=== PATIENT | male | born 1995 | race Caucasian/White ===

== ENCOUNTER 2016-11-10 16:40 | Emergency (ER) | payer OTHER ==
[~2016-11-10] VITALS: Ht 177.8 cm; Wt 85.0 kg
[~2016-11-10 16:40] MED LIST: MULT-589 PO; PRT40 PO
[2016-11-10 16:49] VITALS: TEMP 37; Ht 177.8 cm; Wt 85.0 kg
[2016-11-10] MEDS ORDERED: NORCO 5/325MG HOME PACK PO STA (17:38)
[2016-11-10] MEDS ORDERED: HYDROCODONE/ACETAMOPHEN 5/325MG TAB PO STA (17:38)
--- NOTE | 2016-11-10 17:56 | DIAGNOSTIC IMAGING REPORT ---
RIGHT SHOULDER 2 VIEWS HISTORY: Right shoulder pain, hx dislocations Right COMPARISON: Right shoulder 04/22/2014. FINDINGS: There is an old Hill-Sachs deformity within the humeral head. This remains unchanged. No acute fracture or dislocation. The right clavicle appears intact. Soft tissues are unremarkable. No radiopaque foreign bodies. IMPRESSION: [place]-Sachs deformity, unchanged. No acute fracture or dislocation within the right shoulder. Electronically signed by: Anuj Rodriguez M.D. 11/10/2016 5:54 PM Dictated Date/Time: 11/10/2016 5:53 PM
[2016-11-10] MEDS ORDERED: HYDR-5688 PO (18:12)
--- NOTE | 2016-11-10 18:13 | EMERGENCY ROOM VISIT NOTE ---
History First contact with patient: 16:52 Chief Complaint: SHOULDER PAIN Stated Complaint: R SHOULDER PAIN/INJURY History of Present Illness The patient is a 21 year old male who presents to the Emergency Room via private vehicle with complaints of "right shoulder pain/injury". Patient states that he has a history of shoulder dislocations, and believes that this is the fifth or sixth time this has occurred. He states that yesterday while participating in softball, he went to throw the ball when his right shoulder became dislocated. He notes that while walking to his vehicle, it spontaneously reduced itself. He notes extreme pain when it was out of place but now minimal pain. He states that he follows with Dr. Treadwell in [facility] for previous dislocations. He states that he was to receive an operation, but has postponed this. He states that initially his right fingers were numb however they are normal now. Review of Systems A complete 6-point Review of Systems was discussed with the patient, with pertinent positives and negatives listed in the History of Present Illness. All remaining Review of Systems questions can be considered negative unless otherwise specified. Past Medical/Surgical History Medical Problems: (1) Allergic rhinitis (2) History of dislocation of shoulder Surgical Problems: (1) No history of previous surgery Family History Patient reports no known family medical history. Social History Smoking Status: Never Smoker Alcohol Use: none Marital Status: single Housing Status: lives with family Occupation Status: employed Current/Historical Medications Scheduled PRN Hydrocodone/Acetaminophen 5MG/325MG ([place] 5MG/325MG), 1-2 TABLET PO Q6 PRN for Pain Allergies Coded Allergies: No Known Allergies (Unverified , 11/10/16) Physical Exam Vital Signs Date Time Temp Pulse Resp B/P Pulse Ox O2 Delivery O2 Flow Rate FiO2 11/10/16 18:18 70 16 111/83 100 11/10/16 16:49 37.0 83 16 125/88 99 Physical Exam VITAL SIGNS - Vital signs and nursing notes were reviewed. Patient is afebrile , normotensive, non-tachycardic and is saturating well on room air 99%. GENERAL -21-year-old male appearing his stated age who is in no acute distress. Communicates well with provider and answers questions appropriately. SKIN - Without rashes. EXTREMITIES - No clubbing or peripheral cyanosis. No pretibial edema present. Patient's right radial pulse is within normal limits. There is within normal limits prescription strength of the right hand. There are no neurovascular deficits appreciated of the right upper extremity. There is ability to shoulder shrug. There is minimal range of motion of the right shoulder secondary to pain. There is tenderness to palpation overlying the deltoid region. Medical Decision & Procedures ER Provider Diagnostic Interpretation: RIGHT SHOULDER 2 VIEWS HISTORY: Right shoulder pain, hx dislocations Right COMPARISON: Right shoulder 04/22/2014. FINDINGS: There is an old Hill-Sachs deformity within the humeral head. This remains unchanged. No acute fracture or dislocation. The right clavicle appears intact. Soft tissues are unremarkable. No radiopaque foreign bodies. IMPRESSION: [place]-Sachs deformity, unchanged. No acute fracture or dislocation within the right shoulder. Electronically signed by: Anuj Rodriguez M.D. 11/10/2016 5:54 PM Dictated Date/Time: 11/10/2016 5:53 PM Medications Administered Medications (Trade) Dose Ordered Sig/Karishma Route Start Time Stop Time Status Last Admin Dose Admin Acetaminophen/ Hydrocodone Bitart ([place] 5/325mg Home Pack) 1 homepack UD STAT PO 11/10/16 17:38 11/10/16 17:39 DC 11/10/16 17:49 1 HOMEPACK Acetaminophen/ Hydrocodone Bitart ([place] 5/325 Tab) 1 tab NOW STAT PO 11/10/16 17:38 11/10/16 17:39 DC 11/10/16 17:49 1 TAB Medical Decision Patient was seen and evaluated as above. After obtaining a thorough history and physical examination patient was offered pain medication and initially declined, but then stated he would like something. He was provided with hydrocodone/acetaminophen 5/325 for his pain. He was reevaluated and was feeling much better. Radiographs were obtained and revealed an old Hill-Sachs deformity but in anatomic alignment of the right shoulder. Patient is already in a shoulder sling. He does appear to be comfortable. He will be provided with a home pack as well as a short-term prescription for pain medication and is to follow-up with orthopedics by calling their office first thing tomorrow morning. At this time he appears stable for discharge. Patient was educated upon management today's findings, educated upon worrisome symptoms which to return, had questions prior to discharge and was discharged home in good condition. In the evaluation and treatment of this patient, the following differential diagnoses were considered: Shoulder Contusion, Shoulder Fracture, Shoulder Dislocation, Thoracic Outlet Syndrome, Adhesive Capsulitis, Rotator Cuff Tear, Proximal Clavicle Head Fracture, Apical Pneumonia, Pneumothorax, Hemothorax, or TB. [place] Drug Monitoring [place] Search Results: patient reviewed within database, no issues identified Impression Primary Impression: Shoulder pain, right Additional Impression: History of dislocation of shoulder Departure Information Dispostion Home / Self-Care Condition GOOD Prescriptions Hydrocodone/Acetaminophen 5MG/325MG ([place] 5MG/325MG) Tab 1-2 TABLET PO Q6 Y for Pain, #15 TAB For Initial Treatment Prov: Ryley Panda PA-C 11/10/16 Referrals Chad Sewell M.D. (PCP) Patient Instructions My [facility] Additional Instructions You have been treated in the Emergency Department for Shoulder Pain. You have received pain medicine in the emergency department which impairs your ability to operate a vehicle. It is illegal for you to drive after receiving these medicines. You have been prescribed NORCO to be used for pain control. This is a narcotic medication. You cannot drive or consume alcohol while on this medicine. This medicine should only be used for pain that cannot be controlled with over-the- counter pain medicines. DO NOT TAKE WITH TYLENOL!! For pain control, you can use the following [id number] medicines (if >12 yo): - Regular strength (200 mg/tab) Advil (ibuprofen) 1-2 tabs every 4-6 hours as needed. Do not exceed a dose of 3200 mg per day. If this is a recent injury (<24 hrs), ice can be applied to the area of pain for the first 3 days to help decrease pain and inflammation. You have been provided the number for an Orthopaedic Surgeon. You should call this number as soon as possible to establish a follow-up visit from today's Emergency Department visit. Keep the shoulder brace/sling in place until evaluated by Orthopedics. Continue to perform range of motion exercises several times per day to help prevent the development of a "frozen shoulder". Return to the Emergency Department if your current symptoms worsen despite treatment course outlined above, or if you develop any of the following symptoms : intractable pain despite aforementioned treatment course or new onset of numbness or tingling of the arm. Please return to emergency department with any new/concerning symptoms. Problem Qualifiers
[2016-11-10 18:18] VITALS: BP 111/83; PULSE 70; O2SAT 100
== END 2016-11-10 18:19 | disposition home or self-care (01) ==
LOC: C.EDB 16:41 → C.EDD 18:19
DX: M25.511 Pain in right shoulder (principal); Z87.828 Personal history of other (healed) physical injury and trauma; Y93.64 Activity, baseball

== ENCOUNTER 2021-07-01 15:32 | Inpatient (IN) ==
[2021-07-01] MEDS ORDERED: ONDANSETRON INJ 2 MG/ML 2 ML VIAL IV STA (15:42)
[2021-07-01] MEDS ORDERED: SODIUM CHLORIDE 0.9% 1000ML 1,000 ML IV ONE ×2 (15:57→17:41)
--- NOTE | 2021-07-01 16:04 | Emergency Department Note ---
History of Present Illness General Chief complaint: Vomiting Stated complaint: VOMITING,DEHYDRATED Time Seen by Provider: 07/01/21 15:45 History of Present Illness Maximum Pain Intensity: 6 This 26 year old male patient presents to the ED today for evaluation of nausea and vomiting. This started this morning. The patient does admit to drinking over and [place]. He was positive for COVID-19 on 06/19/2021 (onset of symptoms 06/17/2021). He states over the weekend, he was feeling somewhat queasy, but was generally feeling well enough to go hunting. He states this morning when he awoke, he was having nausea and vomiting. Upon arrival to the ED, he vomited some blood into the toilet. The patient does report history of similar episode approximately 5 years ago and got admitted to the hospital, but did not require blood transfusion. He takes Pepcid as needed, but has not taken any recently. He does admit to drinking about 12 beers last night and notes he does tend to drink heavily over the weekend. The patient denies any chest pain or shortness of breath. He does report some generalized abdominal pain associated with retching. He denies any fever. No chills. No other associated symptoms. Home Medications Medication Instructions Recorded Confirmed Type No Known Home Medications 07/01/21 07/01/21 History Allergies Allergy/AdvReac Type Severity Reaction Status Date / Time No Known Allergies Allergy Unverified 07/01/21 17:04 Past Med/Surg History Medical History Arrhythmia COVID-19 Social History Smoking Status: Never smoker Preferred Language: Macedonian Feels Safe at Home: Yes Review of Systems A total of 10 systems reviewed and were otherwise negative Physical Exam Vital Signs Vital Signs - 24 hr 07/01/21 15:33 07/01/21 16:25 07/01/21 16:30 Temperature 35.7 C L Temperature Source Temporal Artery Scan Pulse Rate 131 H 124 H 131 H Pulse Rate from SpO2 Sensor 123 H 130 H Pulse Rhythm Respiratory Rate 20 28 H 34 H Respiratory Effort / Characteristics Non-Labored Respiratory Depth Normal Respiratory Pattern Regular Blood Pressure 158/102 H 169/129 H Blood Pressure Mean 120 142 Pulse Oximetry 98 98 98 Oxygen Delivery Method Room Air Sepsis Recent Fever Within 48 Hours No Sepsis New/Unexplained Change in Mental Status No Sepsis Action Taken by Nursing Physician Notified 07/01/21 16:40 07/01/21 17:19 07/01/21 17:30 Temperature Temperature Source Pulse Rate 124 H 116 H Pulse Rate from SpO2 Sensor 121 H 115 H Pulse Rhythm Regular Respiratory Rate 28 H 24 Respiratory Effort / Characteristics Respiratory Depth Respiratory Pattern Blood Pressure Blood Pressure Mean Pulse Oximetry 98 98 98 Oxygen Delivery Method Room Air Sepsis Recent Fever Within 48 Hours Sepsis New/Unexplained Change in Mental Status Sepsis Action Taken by Nursing 07/01/21 18:00 07/01/21 18:30 Temperature Temperature Source Pulse Rate 103 H 109 H Pulse Rate from SpO2 Sensor 104 H 107 H Pulse Rhythm Respiratory Rate 21 27 H Respiratory Effort / Characteristics Respiratory Depth Respiratory Pattern Blood Pressure 145/83 H Blood Pressure Mean 103 Pulse Oximetry 98 96 Oxygen Delivery Method Sepsis Recent Fever Within 48 Hours Sepsis New/Unexplained Change in Mental Status Sepsis Action Taken by Nursing VITALS: Vitals are noted on the nurse's note and reviewed by myself. Vital signs stable. GENERAL: This is a 26 year old white male, in no acute distress, nondiaphoretic, well-developed well-nourished. SKIN: Wound on the left lower abdomen with surrounding erythema reportedly from tick bite that was removed last Friday, was attached for approximately 24 hours. No bulls eye rash. The skin was otherwise without rashes, erythema, edema, or bruising. There is no tenting of the skin. Capillary refill less than 2 seconds. HEAD: Normocephalic atraumatic. EYES: Conjunctivae without injection, sclerae without icterus. NECK: Supple without nuchal rigidity. No lymphadenopathy. No thyromegaly. No JVD. HEART: Regular rate and rhythm without murmurs gallops or rubs. LUNGS: Clear to auscultation bilaterally without wheezes, rales or rhonchi. No retractions or accessory muscle use. ABDOMEN: Positive bowel sounds x 4. Soft, nontender, without masses or organomegaly. Joshi sign negative. No guarding or rebound tenderness. MUSCULOSKELETAL: No muscle atrophy, erythema, or edema noted. Full range of motion without joint tenderness in all extremities. No tenderness to palpation. Normal gait. Strength 5/5 throughout. NEURO: Patient was alert and oriented to person place and time. No focal neurological deficits. Course Course The patient was seen and evaluated as above. An order was placed for continuous cardiac monitoring. The monitor shows a sinus tachycardia at a rate of 126 bpm. IV access obtained, labs drawn. Patient hydrated IV fluids, Zofran. Labs reviewed by myself. I discussed case with my attending physician. Imaging performed and reviewed by myself and radiologist as noted. Additional labs reviewed. Patient medicated with a second liter of IV fluids. I again discussed the findings of my attending physician. I discussed the findings and recommendation for admission with the patient at bedside. The patient and his now informed me of a tick bite on the left side of the abdomen which occurred last week. The tick was apparently attached for greater than 24 hours, but was successfully removed on Friday. Pt. medicated with IV Rocephin. I discussed the case with the ED machine adjuster leader case trim. I discussed the case with Dr. Leonard, [facility] hospitalist physician. Please see hospitalist dictation regarding ongoing management and care of this patient. Administered Medications Doxycycline Hyclate 100 mg/ (Dextrose) 110 mls @ 50 mls/hr IV Q12H RUPAL Stop: 07/11/21 20:44 Last Admin: 07/01/21 21:30 Dose: 50 mls/hr Documented by: [id number] Pantoprazole Sodium 40 mg/ (Dextrose) 100 mls @ 20 mls/hr IV Q5H RUPAL Stop: 07/31/21 21:29 Last Admin: 07/01/21 22:02 Dose: 8 mg/hr, 20 mls/hr Documented by: [id number] Discontinued Medications Sodium Chloride (Nss 1000ml) 1,000 mls @ 999 mls/hr IV .Q1H1M ONE Stop: 07/01/21 16:57 Last Infusion: 07/01/21 17:30 Dose: 0 mls/hr Documented by: [id number] Admin: 07/01/21 16:22 Dose: 999 mls/hr Documented by: [id number] Lorazepam (Ativan) 1 mg in 2 mls @ 2 mls/min IV NOW STA Stop: 07/01/21 16:39 Last Admin: 07/01/21 16:46 Dose: 2 mls/min Documented by: [id number] Sodium Chloride (Nss 1000ml) 1,000 mls @ 999 mls/hr IV .Q1H1M ONE Stop: 07/01/21 18:41 Last Infusion: 07/01/21 20:17 Dose: 0 mls/hr Documented by: [id number] Admin: 07/01/21 18:33 Dose: 999 mls/hr Documented by: [id number] Ceftriaxone Sodium (Rocephin) 1,000 mg in 50 mls @ 100 mls/hr IV NOW STA Stop: 07/01/21 19:43 Last Infusion: 07/01/21 21:27 Dose: 0 mls/hr Documented by: [id number] Admin: 07/01/21 20:57 Dose: 100 mls/hr Documented by: [id number] Pantoprazole Sodium (Protonix Bolus/Drip) 0 mls @ 1 mls/hr IV ONE STA Stop: 07/01/21 20:43 Last Admin: 07/01/21 21:36 Dose: Not Given Documented by: [id number] Thiamine HCl 100 mg/ Syringe 10 mls @ 2 mls/min IV NOW STA Stop: 07/01/21 20:46 Last Admin: 07/01/21 21:30 Dose: 2 mls/min Documented by: [id number] Pantoprazole Sodium 80 mg/ (Dextrose) 120 mls @ 480 mls/hr IV 2114 RUPAL Stop: 07/01/21 21:29 Last Infusion: 07/01/21 22:01 Dose: 0 mls/hr Documented by: [id number] Admin: 07/01/21 21:34 Dose: 480 mls/hr Documented by: [id number] Ioversol (Optiray 320 125ml) 117 ml IV ONCE ONE Stop: 07/01/21 17:17 Last Admin: 07/01/21 17:17 Dose: 117 ml Documented by: [id number] Ondansetron HCl (Ondansetron Inj 2 Mg/Ml 2 Ml Vial) 4 mg IV NOW STA Stop: 07/01/21 15:43 Last Admin: 07/01/21 16:22 Dose: 4 mg Documented by: [id number] Medical Decision Making Differential Diagnosis Sepsis, UTI, pneumonia, metabolic, electrolyte abnormalities, cardiac sources, intracerebral event, toxicologic, neurologic, as well as other pathologies. Medical Records Attestation: I reviewed the patient's medical records. Home Medications Current Medication List: was personally reviewed by me Laboratory Data Leukocytosis of 26.98. No anemia or thrombocytopenia. Renal, hepatic function without significant abnormality, however the creatinine is mildly elevated at 1.56. Anion gap is 20. Troponin negative. CRP elevated 0.68. Lipase 76. INR 1.1. Lactic acid elevated at 5.9. Urinalysis positive for 2+ ketones and appears to be contaminated specimen. No clear evidence of infection. Result diagrams: 07/01/21 16:10 07/01/21 16:10 Lab Results 07/01/21 07/01/21 07/01/21 Range/Units 16:10 16:10 16:10 WBC 26.98 H (4.8-10.8) K/uL RBC 5.68 (4.7-6.1) M/uL Hgb 17.6 (14.0-18.0) g/dL Hct 52.1 H (42-52) % MCV 91.7 (80-100) fL MCH 31.0 (25-34) pg MCHC 33.8 (32-36) g/dL RDW Std Deviation 44.7 (36.4-46.3) fL RDW Coeff of Karl 13.3 (11.5-14.5) % Plt Count 318 (130-400) K/uL MPV 10.0 (7.4-10.4) fL Immature Gran % (Auto) 0.4 % Neut % (Auto) 84.6 % Lymph % (Auto) 13.2 % Williams % (Auto) 1.7 % Eos % (Auto) 0.0 % Baso % (Auto) 0.1 % Neut # (Auto) 22.82 H (1.4-6.5) K/uL Lymph # (Auto) 3.55 H (1.2-3.4) K/uL Williams # (Auto) 0.47 (0.11-0.59) K/uL Eos # (Auto) 0.00 (0-0.5) K/uL Baso # (Auto) 0.02 (0-0.2) K/uL Immature Gran # (Auto) 0.12 H (0.00-0.02) K/uL PT (9.0-12.0) Seconds INR (0.9-1.1) Sodium 140 (136-145) mmol/L Potassium 4.1 (3.5-5.1) mmol/L Chloride 104 (98-107) mmol/L Carbon Dioxide 16 L (21-32) mmol/L Anion Gap 20.0 H (3-11) BUN 16 (7-18) mg/dl Creatinine 1.56 H (0.6-1.4) mg/dl Est Cr Clr Drug Dosing 73.4 ml/min Est GFR ( Amer) 69.5 ml/min Est GFR (Non-Af Amer) 60.0 ml/min BUN/Creatinine Ratio 10.4 (10-20) Glucose 159 H (70-99) mg/dl Lactate (0.4-2.0) mmol/L Calcium 10.4 H (8.5-10.1) mg/dl Total Bilirubin 0.4 (0.2-1) mg/dl AST 31 (15-37) U/L ALT 65 (12-78) Alkaline Phosphatase 149 H (45-117) U/L Troponin I < 0.015 (0-0.045) ng/ml C-Reactive Protein 0.68 H (0-0.29) mg/dl Total Protein 9.4 H (6.4-8.2) gm/dl Albumin 5.3 H (3.4-5.0) gm/dl Globulin 4.1 H (2.5-4.0) gm/dl Albumin/Globulin Ratio 1.3 (0.9-2) Lipase 76 (73-393) U/L Procalcitonin 9.89 H (0-0.5) ng/ml Urine Color Urine Appearance (Clear) Urine pH (4.5-7.5) Ur Specific [place] (1.000-1.030) Urine Protein (Negative) Urine Glucose (UA) (Negative) Urine Ketones (Negative) Urine Blood (Negative) Urine Nitrite (Negative) Urine Bilirubin (Negative) Urine Urobilinogen (Negative) Ur Leukocyte Esterase (Negative) Urine WBC (Auto) (0-5) /hpf Urine RBC (Auto) (0-4) /hpf U Hyaline Cast (Auto) (0-5) /lpf U Epithel Cells (Auto) (0-5) /lpf Urine Bacteria (Auto) (Negative) Granular Casts (0) /lpf WBC Casts (0) /lpf Urine Mucus (None Prsent) Salicylates (2.8-20) mg/dl Acetaminophen (10-30) ug/ml Lyme Disease IgG Ab Negative (Negative) Lyme Disease IgM Ab Equivocal A (Negative) SARS-CoV-2 (PCR) (Negative) Influenza Type A (PCR) (Neg) Influenza Type B (PCR) (Neg) RSV (RT-PCR) (Neg) 07/01/21 07/01/21 07/01/21 Range/Units 17:20 18:00 18:00 WBC (4.8-10.8) K/uL RBC (4.7-6.1) M/uL Hgb (14.0-18.0) g/dL Hct (42-52) % MCV (80-100) fL MCH (25-34) pg MCHC (32-36) g/dL RDW Std Deviation (36.4-46.3) fL RDW Coeff of Karl (11.5-14.5) % Plt Count (130-400) K/uL MPV (7.4-10.4) fL Immature Gran % (Auto) % Neut % (Auto) % Lymph % (Auto) % Williams % (Auto) % Eos % (Auto) % Baso % (Auto) % Neut # (Auto) (1.4-6.5) K/uL Lymph # (Auto) (1.2-3.4) K/uL Williams # (Auto) (0.11-0.59) K/uL Eos # (Auto) (0-0.5) K/uL Baso # (Auto) (0-0.2) K/uL Immature Gran # (Auto) (0.00-0.02) K/uL PT 10.7 (9.0-12.0) Seconds INR 1.1 (0.9-1.1) Sodium (136-145) mmol/L Potassium (3.5-5.1) mmol/L Chloride (98-107) mmol/L Carbon Dioxide (21-32) mmol/L Anion Gap (3-11) BUN (7-18) mg/dl Creatinine (0.6-1.4) mg/dl Est Cr Clr Drug Dosing ml/min Est GFR ( Amer) ml/min Est GFR (Non-Af Amer) ml/min BUN/Creatinine Ratio (10-20) Glucose (70-99) mg/dl Lactate 5.9 H* (0.4-2.0) mmol/L Calcium (8.5-10.1) mg/dl Total Bilirubin (0.2-1) mg/dl AST (15-37) U/L ALT (12-78) Alkaline Phosphatase (45-117) U/L Troponin I (0-0.045) ng/ml C-Reactive Protein (0-0.29) mg/dl Total Protein (6.4-8.2) gm/dl Albumin (3.4-5.0) gm/dl Globulin (2.5-4.0) gm/dl Albumin/Globulin Ratio (0.9-2) Lipase (73-393) U/L Procalcitonin (0-0.5) ng/ml Urine Color Urine Appearance (Clear) Urine pH (4.5-7.5) Ur Specific [place] (1.000-1.030) Urine Protein (Negative) Urine Glucose (UA) (Negative) Urine Ketones (Negative) Urine Blood (Negative) Urine Nitrite (Negative) Urine Bilirubin (Negative) Urine Urobilinogen (Negative) Ur Leukocyte Esterase (Negative) Urine WBC (Auto) (0-5) /hpf Urine RBC (Auto) (0-4) /hpf U Hyaline Cast (Auto) (0-5) /lpf U Epithel Cells (Auto) (0-5) /lpf Urine Bacteria (Auto) (Negative) Granular Casts (0) /lpf WBC Casts (0) /lpf Urine Mucus (None Prsent) Salicylates (2.8-20) mg/dl Acetaminophen (10-30) ug/ml Lyme Disease IgG Ab (Negative) Lyme Disease IgM Ab (Negative) SARS-CoV-2 (PCR) POSITIVE A* (Negative) Influenza Type A (PCR) Negative (Neg) Influenza Type B (PCR) Negative (Neg) RSV (RT-PCR) Negative (Neg) 07/01/21 07/01/21 07/01/21 Range/Units 18:30 20:10 20:10 WBC (4.8-10.8) K/uL RBC (4.7-6.1) M/uL Hgb (14.0-18.0) g/dL Hct (42-52) % MCV (80-100) fL MCH (25-34) pg MCHC (32-36) g/dL RDW Std Deviation (36.4-46.3) fL RDW Coeff of Karl (11.5-14.5) % Plt Count (130-400) K/uL MPV (7.4-10.4) fL Immature Gran % (Auto) % Neut % (Auto) % Lymph % (Auto) % Williams % (Auto) % Eos % (Auto) % Baso % (Auto) % Neut # (Auto) (1.4-6.5) K/uL Lymph # (Auto) (1.2-3.4) K/uL Williams # (Auto) (0.11-0.59) K/uL Eos # (Auto) (0-0.5) K/uL Baso # (Auto) (0-0.2) K/uL Immature Gran # (Auto) (0.00-0.02) K/uL PT (9.0-12.0) Seconds INR (0.9-1.1) Sodium (136-145) mmol/L Potassium (3.5-5.1) mmol/L Chloride (98-107) mmol/L Carbon Dioxide (21-32) mmol/L Anion Gap (3-11) BUN (7-18) mg/dl Creatinine (0.6-1.4) mg/dl Est Cr Clr Drug Dosing ml/min Est GFR ( Amer) ml/min Est GFR (Non-Af Amer) ml/min BUN/Creatinine Ratio (10-20) Glucose (70-99) mg/dl Lactate 2.6 H* (0.4-2.0) mmol/L Calcium (8.5-10.1) mg/dl Total Bilirubin (0.2-1) mg/dl AST (15-37) U/L ALT (12-78) Alkaline Phosphatase (45-117) U/L Troponin I (0-0.045) ng/ml C-Reactive Protein (0-0.29) mg/dl Total Protein (6.4-8.2) gm/dl Albumin (3.4-5.0) gm/dl Globulin (2.5-4.0) gm/dl Albumin/Globulin Ratio (0.9-2) Lipase (73-393) U/L Procalcitonin (0-0.5) ng/ml Urine Color Yellow Urine Appearance Clear (Clear) Urine pH 5.0 (4.5-7.5) Ur Specific Band[place] > 1.045 H (1.000-1.030) Urine Protein 2+ H (Negative) Urine Glucose (UA) Negative (Negative) Urine Ketones 2+ H (Negative) Urine Blood 1+ H (Negative) Urine Nitrite Negative (Negative) Urine Bilirubin Negative (Negative) Urine Urobilinogen Negative (Negative) Ur Leukocyte Esterase Negative (Negative) Urine WBC (Auto) 1-5 (0-5) /hpf Urine RBC (Auto) 0-4 (0-4) /hpf U Hyaline Cast (Auto) 10-30 H (0-5) /lpf U Epithel Cells (Auto) 10-20 H (0-5) /lpf Urine Bacteria (Auto) Negative (Negative) Granular Casts 10-20 H (0) /lpf WBC Casts 1-5 H (0) /lpf Urine Mucus Present A (None Prsent) Salicylates < 1.7 L (2.8-20) mg/dl Acetaminophen < 2 L (10-30) ug/ml Lyme Disease IgG Ab (Negative) Lyme Disease IgM Ab (Negative) SARS-CoV-2 (PCR) (Negative) Influenza Type A (PCR) (Neg) Influenza Type B (PCR) (Neg) RSV (RT-PCR) (Neg) Imaging Data Radiologist's Impression: Chest X-Ray 07/01/21 15:57 XR chest 1V portable CLINICAL HISTORY: hematemesis TECHNIQUE: Single frontal radiograph of the chest was obtained. Comparison: None available at the time of this dictation. FINDINGS: No lines and tubes are seen. The cardiomediastinal silhouette is normal. The lungs are clear. No evidence of pleural effusion or pneumothorax. IMPRESSION: No acute chest disease. ACT 112: Negative or not required by law. Electronically signed by: Dion Sagastume M.D. 07/01/2021 4:49 PM Abdomen/Pelvis CT 07/01/21 16:40 CT abd pelvis IV con only CLINICAL HISTORY: abdominal pain, vomiting TECHNIQUE: Helical axial images of the abdomen and pelvis were obtained and displayed. Automated dose lowering techniques and/or adjustment according to patient size were utilized for this exam. This exam was performed with intravenous contrast. COMPARISON: Comparison is made to CT abdomen pelvis 10/30/2015 FINDINGS: Lower chest: For findings above the diaphragm, please see CT chest performed same day. Liver: Hepatic steatosis is noted. Gallbladder and biliary tree: No calcified gallstones. Normal caliber wall. No intra- or extrahepatic biliary ductal dilation. Pancreas: Unremarkable, no focal lesions. Spleen: Unremarkable. Adrenals: Unremarkable. Kidneys and ureters: Unremarkable. Bladder: Unremarkable. Reproductive organs: Unremarkable. Bowel: A hiatal hernia is seen. Lymph nodes Retroperitoneal: Unremarkable. Mesenteric: Unremarkable. Pelvic: Unremarkable. Peritoneum: Normal Vessels: Unremarkable. Abdominal wall: Unremarkable. Bones: Unremarkable. IMPRESSION: No acute abnormalities. In particular, no evidence of bowel obstruction. ACT 112: Negative or not required by law. Electronically signed by: Dion Sagastume M.D. 07/01/2021 5:38 PM Chest CTA 07/01/21 16:40 CT angio chest PE protocol CLINICAL HISTORY: sob, chest pain, abd pain, covid hx TECHNIQUE: Multidetector row helical CT of the chest was performed. Coronal and sagittal reformations were obtained. Automated dose lowering techniques and/or adjustment according to patient size were utilized for this exam. Comparison: None available at the time of this dictation. FINDINGS: Lungs and pleura: Mild atelectasis is seen in the dependent portions of the lungs. Heart and pericardium: Heart size is normal. No pericardial effusion. Vessels: No evidence of pulmonary embolism. Mediastinum and shelby: Unremarkable. Chest wall and lower neck: Unremarkable. Abdomen: For findings below the diaphragm, please refer to CT of the abdomen dated the same. Bones: Unremarkable. IMPRESSION: No evidence of pulmonary embolism. ACT 112: Negative or not required by law. Electronically signed by: Dion Sagastume M.D. 07/01/2021 5:24 PM ECG Data Attestation: I personally reviewed and interpreted this ECG as follows: Indication: + chest pain Rate (beats per minute): 121 Rhythm: + sinus tachycardia ECG [place]: + Normal ECG ST segments: no ST depression, no ST elevation or no T-wave inversions Comparison ECG Date: no prior available Blood Pressure Blood Pressure Findings: Elevated blood pressure Blood Pressure Disposition: elevated BP felt to be situational MDM Narrative This 26-year-old male patient presents to the emergency department today for evaluation of vomiting. He had one episode of vomiting blood upon arrival to the ED. He was found to be tachycardic. He is afebrile. He was ill with COVID-19 about 2 weeks ago and notes his symptoms have improved. He was found to have a significant leukocytosis of 27,000. He had an elevated lactic acid at 5.9. He does appear dry clinically. He was hydrated with 2 L of IV fluids. He was complaining of some chest pain and abdominal pain and was feeling very anxious, and was medicated with IV Ativan. His nausea improved and he was able tolerate p.o. food and fluids. He then admitted to de that he had a tick bite last week that is erythematous and uncomfortable on his left lower abdomen. Patient remained tachycardic despite IV hydration. Do recommend admission due to leukocytosis, persistent tachycardia, lactic acidosis. Patient started on IV ceftriaxone. [facility] Please see hospitalist dictation regarding ongoing management and care of this patient. The chart was completed utilizing be[employer] Speech voice recognition software. Grammatical errors, random word insertions, pronoun errors, and incomplete sentences are an occasional consequence of this system due to software limitations, ambient noise, and hardware issues. Any formal questions or concerns about the content, text, or information contained within the body of this dictation should be directly addressed to the provider for clarification. Impression & Plan Vomiting, Tachycardia, Leukocytosis, Tick bite of abdomen Discharge Plan Visit Data Chief Complaint: Vomiting Stated Complaint: VOMITING,DEHYDRATED ED Provider: Misael Willoughby ED Midlevel Provider: Karissa Duggan Discharge Problem: Vomiting, Tachycardia, Leukocytosis, Tick bite of abdomen Patient Disposition: Admitted As Inpatient Forms Stand Alone Forms: Tale Me Stories Prescriptions Prescriptions: No Action No Known Home Medications RF: 0 Referrals Referrals: Chad Sewell MD [Outside Practitioners] -
[2021-07-01 16:21] LABS: Hematocrit (blood only) 52.1 % (42-52); Hemoglobin 17.6 g/dL (14.0-18.0); Mean Corpuscular Hgb Conc 33.8 g/dL (32-36); Mean Corpuscular Volume 91.7 fL (80-100); Platelet Count 318 K/uL (130-400); RDW Coefficient of Variation 13.3 % (11.5-14.5); RDW Standard Deviation 44.7 fL (36.4-46.3); Red Blood Count 5.68 M/uL (4.7-6.1); White Blood Count 26.98 K/uL (4.8-10.8)
[2021-07-01 16:36] LABS: Basophils # (auto) 0.02 K/uL (0-0.2); Basophils % (auto) 0.1 %; Immature Granulocytes # (auto) 0.12 K/uL (0.00-0.02); Immature Granulocytes % (auto) 0.4 %; Lymphocytes # (auto) 3.55 K/uL (1.2-3.4); Lymphocytes % (auto) 13.2 %; Monocytes # (auto) 0.47 K/uL (0.11-0.59); Monocytes % (auto) 1.7 %; Neutrophils # (auto) 22.82 K/uL (1.4-6.5); Neutrophils % (auto) 84.6 %
[2021-07-01 16:38] LABS: Alanine Aminotransferase 65 (12-78); Albumin Level 5.3 gm/dl (3.4-5.0); Aspartate Aminotransferase 31 U/L (15-37); BUN Creatinine Ratio 10.4 (10-20); Blood Urea Nitrogen 16 mg/dl (7-18); Calcium 10.4 mg/dl (8.5-10.1); Carbon Dioxide 16 mmol/L (21-32); Creatinine Clr Calc Pharmacy 73.4 ml/min; Est GFR (African American) 69.5 ml/min; Glucose 159 mg/dl (70-99); Lipase 76 U/L (73-393)
[2021-07-01] MEDS ORDERED: LORazepam 1 MG/2 ML VIAL IV STA (16:38)
[2021-07-01 16:41] LABS: Albumin Globulin Ratio 1.3 (0.9-2); Alkaline Phosphatase 149 U/L (45-117); Bilirubin,Total 0.4 mg/dl (0.2-1); Globulin 4.1 gm/dl (2.5-4.0); Total Protein 9.4 gm/dl (6.4-8.2)
--- NOTE | 2021-07-01 16:51 | XRay Report ---
XR chest 1V portable CLINICAL HISTORY: hematemesis TECHNIQUE: Single frontal radiograph of the chest was obtained. Comparison: None available at the time of this dictation. FINDINGS: No lines and tubes are seen. The cardiomediastinal silhouette is normal. The lungs are clear. No evid ence of pleural effusion or pneumothorax. IMPRESSION: No acute chest disease. ACT 112: Negative or not required by law. Electronically signed by: Dion Sagastume M.D. 07/01/2021 4:49 PM
[2021-07-01] MEDS ORDERED: OPTIRAY 320 125ml IV ONE (17:16)
--- NOTE | 2021-07-01 17:25 | CT Scan Report ---
CT angio chest PE protocol CLINICAL HISTORY: sob, chest pain, abd pain, covid hx TECHNIQUE: Multidetector row helical CT of the chest was performed. Coronal and sagittal reformations were obtained. Automated dose lowering techniques and/or adjustment according to patient size were u tilized for this exam. Comparison: None available at the time of this dictation. FINDINGS: Lungs and pleura: Mild atelectasis is seen in the dependent portions of the lungs. Heart and pericardium: Heart size is normal. No pericardial effusion. Vessels: No evidence of pulmonary embolism. Mediastinum and shelby: Unremarkable. Chest wall and lower neck: Unremarkable. Abdomen: For findings below the diaphragm, please refer to CT of the abdomen dated the same. Bones: Unremarkable. IMPRESSION: No evidence of pulmonary embolism. ACT 112: Negative or not required by law. Electronically signed by: Dion Sagastume M.D. 07/01/2021 5:24 PM
[2021-07-01 17:30] LABS: C Reactive Protein 0.68 mg/dl (0-0.29)
[2021-07-01 17:37] LABS: Chloride 104 mmol/L (98-107); Potassium 4.1 mmol/L (3.5-5.1); Sodium 140 mmol/L (136-145)
[2021-07-01 17:38] LABS: Troponin I < 0.015 ng/ml (0-0.045)
--- NOTE | 2021-07-01 17:40 | CT Scan Report ---
CT abd pelvis IV con only CLINICAL HISTORY: abdominal pain, vomiting TECHNIQUE: Helical axial images of the abdomen and pelvis were obtained and displayed. Automated dose lowering techniques and/or adjustment according to patient size were utilized for this exam. This e xam was performed with intravenous contrast. COMPARISON: Comparison is made to CT abdomen pelvis 10/30/2015 FINDINGS: Lower chest: For findings above the diaphragm, please see CT chest performed same day. Liver: Hepatic steatosis is noted. Gallbladder and biliary tree: No calcified gallstones. Normal caliber wall. No intra- or extrahepatic biliary ductal dilation. Pancreas: Unremarkable, no focal lesions. Spleen: Unremarkable. Adrenals: Unremarkable. Kidneys and ureters: Unremarkable. Bladder: Unremarkable. Reproductive organs: Unremarkable. Bowel: A hiatal hernia is seen. Lymph nodes Retroperitoneal: Unremarkable. Mesenteric: Unremarkable. Pelvic: Unremarkable. Peritoneum: Normal Vessels: Unremarkable. Abdominal wall: Unremarkable. Bones: Unremarkable. IMPRESSION: No acute abnormalities. In particular, no evidence of bowel obstruction. ACT 112: Negative or not required by law. Electronically signed by: Dion Sagastume M.D. 07/01/2021 5:38 PM
[2021-07-01 18:15] LABS: Influenza A virus by PCR Negative (Neg); Influenza B virus by PCR Negative (Neg); RSV by PCR Negative (Neg)
[2021-07-01 18:25] LABS: INR 1.1 (0.9-1.1); Prothrombin Time 10.7 Seconds (9.0-12.0)
[2021-07-01 18:32] LABS: SARS CoV2 RNA(COVID-19) InHosp POSITIVE (Negative)
[2021-07-01 18:40] LABS: Appearance Urine Clear (Clear); Bacteria Urine Automated Negative (Negative); Bilirubin Urine Negative (Negative); Blood Urine 1+ (Negative); Color Urine Yellow; Glucose Urine UA Negative (Negative); Ketones Urine 2+ (Negative); Leukocyte Esterase Urine Negative (Negative); Nitrite Urine Negative (Negative); Protein Urine 2+ (Negative); RBC Urine Automated 0-4 /hpf (0-4); Specific Gravity Urine > 1.045 (1.000-1.030); Urobilinogen Urine Negative (Negative)
[2021-07-01] MEDS ORDERED: cefTRIAXone SODIUM 1,000 MG/50 ML BAG IV STA (19:14)
[2021-07-01 19:24] LABS: Mucus Urine Present (None Prsent)
[2021-07-01 20:07] LABS: Procalcitonin 9.89 ng/ml (0-0.5)
[2021-07-01 20:14] LABS: Lyme Ab IgG w/WB Rflx Negative (Negative); Lyme Ab IgM w/WB Rflx Equivocal (Negative)
[2021-07-01 20:37] LABS: Acetaminophen < 2 ug/ml (10-30); Salicylate < 1.7 mg/dl (2.8-20)
[2021-07-01] MEDS ORDERED: PANTOPRAZOLE BOLUS/DRIP 1 EA IV STA (20:42)
[2021-07-01] MEDS ORDERED: THIAMINE HCL 100 MG in SYRINGE 9 ML IV STA (20:42)
[2021-07-01] MEDS ORDERED: PANTOprazole 80 MG in DEXTROSE 5% 100 ML IV SCH (21:15)
[2021-07-01] MEDS: DOXYCYCLINE HYCLATE 100 MG in DEXTROSE 5% 100 ML IV SCH (21:30)
[2021-07-01] MEDS: PANTOprazole 40 MG in DEXTROSE 5% 100 ML IV SCH (22:02)
--- NOTE | 2021-07-01 22:30 | History and Physical Report ---
DATE OF ADMISSION: 07/01/2021 CHIEF COMPLAINT: Nausea, vomiting, an episode of hematemesis, COVID-19. HISTORY OF PRESENT ILLNESS: This is a 26-year-old male with past medical history significant for allergic rhinitis, history of alcoholism, who presents with nausea, vomiting and had an episode of hematemesis in the ER. The patient had COVID symptoms like loss of sense of smell and taste on 06/16-06/17, and he was diagnosed with COVID on 06/19, but he was doing okay. He went for a hunting camp at the weekend and he drank 12 beers last night and since today morning, he is having lot of nausea, vomiting, which is not getting better and has abdominal discomfort when he was vomiting. He also felt short of breath and some chest pain, but that all resolved now. He had a small episode of hematemesis in the ER and his fiancee is saying that she took off a tick from the left side of his abdomen and she took 4 tics since October. Never had Lyme disease. Currently, patient is somewhat tachycardic, otherwise he is saturating fine and his white count was 26,000. His initial lactate was 5.9, repeat was 2.6. Troponin is negative. C-reactive protein is 0.6. COVID was positive. Influenza A and B negative. Lyme screen pending. CT of the chest and CT of the abdomen and pelvis unremarkable. Currently, patient is resting comfortably and hemodynamically stable. Denies any headache. No blurred visions, no earache, no runny nose, no sore throat, no cough, no shortness of breath except when he was having a lot of nausea, vomiting, he felt short of breath and chest pain that has resolved, abdominal pain resolved. No diarrhea or constipation, no blood in stools or black stools. Normal micturition. No swelling in the legs. The patient was admitted with a similar presentation in 2015 with nausea, vomiting, abdominal pain and hematemesis. At that time, he was status post EGD on 10/30/2015 and found inflamed esophageal rings, possible eosinophilic esophagitis. He was cleared for discharge with Protonix 40 mg b.i.d. The patient states he does not drink regularly, he only drinks heavily once in a while mostly in the weekends and does not think he will get withdrawal symptoms. ALLERGIES: No known drug allergies. PAST MEDICAL HISTORY: As mentioned above. PAST SURGICAL HISTORY: EGD, right shoulder arthroscopy. MEDICATIONS: Currently none. FAMILY HISTORY: No family history on file. SOCIAL HISTORY: Single. No smoking. Alcohol - once in a while heavy drinking. Smoked marijuana, used to smoke but not currently. REVIEW OF SYSTEMS: As per HPI. Rest of the review of systems is negative. PHYSICAL EXAMINATION: GENERAL: The patient is of moderate build, not in acute distress. VITAL SIGNS: Temperature 35.7, pulse 109, respiratory rate 27, blood pressure 145/83, oxygen 96% on room air. HEENT: Pupils equal, round and reactive to light. Oral mucosa moist. NECK: No JVD, no neck masses. CARDIOVASCULAR: S1 and S2 heard, tachycardia. No murmurs. RESPIRATORY SYSTEM: Normal AP diameter. No accessory muscle use. No wheezing, no crackles. ABDOMEN: Soft, bowel sounds present. Nontender, no distention. Small erythematous site seen on the left side of the abdomen at the tic bite site. EXTREMITIES: No edema, no erythema. LABORATORY DATA: WBC 26.9, hemoglobin 17.6, hematocrit 52.1, platelets 318. PT 10.7, INR 1.1. Sodium 140, potassium 4.1, chloride 104, bicarbonate 16, anion gap 20, BUN 16, creatinine 1.5, serum glucose 159. Lactic acid was 5.9, repeat 2.6, calcium 10.4, total bilirubin 0.4, AST 31, ALT 65, alkaline phosphatase 149. Troponin I less than 0.05. C-reactive protein 0.6. Lipase 76. Procalcitonin 9.89. Urine positive for ketones. Salicylate less than 1.7, acetaminophen less than 2. Lyme IGM antibody equivocal. SARS-CoV-2 PCR positive. Influenza A and B negative. CT of chest: No acute findings. CT of abdomen and pelvis with IV contrast: No acute findings. Chest x-ray: No acute disease. EKG: Sinus tachycardia at a rate of 121, no significant change was found. ASSESSMENT AND PLAN: This is a 26-year-old male who presents with nausea, vomiting, one episode of hematemesis, alcoholism, COVID-19 and Lyme disease. 1. Hematemesis, one episode with significant nausea and vomiting that is improving. 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 CT scan of the chest and abdomen was unremarkable. We will give fluids, keep him n.p.o., IV antiemetics, IV antibiotics and consult gastrointestinal in the a.m. Hemoglobin and hematocrit q.6 hours. Currently, hemoglobin and hematocrit is stable. 2. Lactic acidosis most likely from alcoholism. Lactic acid has improved. We will continue fluids and follow the repeat laboratories. 3. Acute kidney injury. Creatinine of 1.5. Getting fluids. We will follow the laboratories in the a.m. 4. Leukocytosis. Lyme screen positive. Elevated procalcitonin. Emergency Room started him on Rocephin. We will continue Rocephin, also add doxycycline and follow the cultures.Follow final lyme test results. Follow the response. 5. COVID-19 positive. Currently, asymptomatic. We will monitor. 6. Deep venous thrombosis prophylaxis: Lovenox DISPOSITION: Closely monitor in the tele floor. Level 1 full code. Expect to discharge home and follow with family doctor. Job ID[facility] [id number] [facility]Prince
[2021-07-01] MEDS ORDERED: PANTOprazole 40 MG in DEXTROSE 5% 100 ML IV SCH (23:17)
[2021-07-01] MEDS ORDERED: NITROGLYCERIN SL 0.4 MG/TAB TAB SL PRN (23:17)
[2021-07-01] MEDS ORDERED: ONDANSETRON INJ 2 MG/ML 2 ML VIAL IV PRN (23:17)
[2021-07-01] MEDS ORDERED: LORazepam 1 MG/2 ML VIAL IV PRN (23:17)
[2021-07-01] MEDS ORDERED: MULTI-VITAMIN INFUSION 10 ML, THIAMINE HCL 100 MG, FOLIC ACID 1 MG in SODIUM CHLORIDE 0... IV ONE (23:17)
[2021-07-01] MEDS ORDERED: PANTOprazole 80 MG in DEXTROSE 5% 100 ML IV ONE (23:17)
[2021-07-01] MEDS ORDERED: ACETAMINOPHEN 325 MG TAB PO PRN (23:17)
[2021-07-02] MEDS: D5W AND NSS 1,000 ML IV SCH ×2 (01:56→08:31)
[2021-07-02] MEDS: PANTOprazole 40 MG in DEXTROSE 5% 100 ML IV SCH ×5 (02:14→21:13)
[2021-07-02 05:37] LABS: Basophils # (auto) 0.01 K/uL (0-0.2); Basophils % (auto) 0.1 %; Eosinophils # (auto) 0.01 K/uL (0-0.5); Eosinophils % (auto) 0.1 %; Hematocrit (blood only) 40.9 % (42-52); Hemoglobin 13.8 g/dL (14.0-18.0); Immature Granulocytes # (auto) 0.02 K/uL (0.00-0.02); Immature Granulocytes % (auto) 0.2 %; Lymphocytes # (auto) 2.61 K/uL (1.2-3.4); Lymphocytes % (auto) 24.1 %; Mean Corpuscular Hgb Conc 33.7 g/dL (32-36); Mean Corpuscular Volume 88.9 fL (80-100); Mean Platelet Volume 9.5 fL (7.4-10.4); Monocytes # (auto) 1.58 K/uL (0.11-0.59); Monocytes % (auto) 14.6 %; Neutrophils # (auto) 6.58 K/uL (1.4-6.5); Neutrophils % (auto) 60.9 %; Platelet Count 164 K/uL (130-400); RDW Coefficient of Variation 13.3 % (11.5-14.5); White Blood Count 10.81 K/uL (4.8-10.8)
--- NOTE | 2021-07-02 05:44 | Hospitalist Progress Note ---
Date of Service July 02, 2021 Assessment & Plan Admission and Anticipated Discharge Date Admission Date: July 01, 2021 Subjective DVT px. scds as patinet had hematemesis. thanks Results & Data Results & Data ([facility]) Vital Signs (Past 12 Hours) Vital Signs Pulse Pulse Resp BP BP Pulse Ox 07/02/21 03:25 77 20 131/69 98 07/01/21 21:30 102 H 22 122/69 99 07/01/21 18:30 109 H 27 H 145/83 H 96 07/01/21 18:00 103 H 21 98
[2021-07-02 06:11] LABS: BUN Creatinine Ratio 14.4 (10-20); Calcium 8.5 mg/dl (8.5-10.1); Creatinine Clr Calc Pharmacy 114.6 ml/min; Est GFR (Non-African American) 102.7 ml/min; Potassium 3.9 mmol/L (3.5-5.1)
[2021-07-02 06:37] LABS: Magnesium 1.9 mg/dl (1.8-2.4)
[2021-07-02] MEDS: THIAMINE HCL 100 MG in SYRINGE 9 ML IV SCH (08:32)
[2021-07-02] MEDS: FOLIC ACID 1 MG in SYRINGE 9.8 ML IV SCH (08:32)
--- NOTE | 2021-07-02 08:35 | Gastrointestinal Consultation ---
Date of Consultation July 02, 2021 Assessment & Plan (1) Vomitin26 year old male, COVID-19 positive admitted w. abd pain, nausea/vomiting and small volume hematemesis after large volume ETOH consumption. Suspect MWT vs esophagitis vs gastritis. Clinically stable w BP 136/84, pulse 78, o2 100. hgb 14. bun 14 w/ brown stool. Given stability, COVID-19 diagnosis would recommend conservative management. NPO. IV PPI bolus and drip. Trend HGB. Monitor and document GI output. No NSAIDs. Continue antiemetics. In the event of aggressive GIB, will need to arrange EGD. As he is COVID-19 he would likely need to be done in the OR and may require intubation pending facility guidelines. Thank you for allowing us to participate in the care of this patient. Please call with any acute changes, questions or concerns. Please see addendum below with additional recommendation from my supervising physician. Supervising Physician Co-Signing Physician Notes The patient's history was reviewed as he was found to be Covid positive. Patient has a history of alcohol abuse and had a solitary episode of hematemesis after several episodes of emesis. The history is most compatible with a Beatriz-Escalante tear. Given this we would recommend conservative therapy with IV Protonix for 24 hours and a transition to oral Protonix tomorrow. Should the patient have a significant drop in his hemoglobin or hematocrit and recurrent hematemesis we could then certainly entertain endoscopic evaluation otherwise EGD is unlikely to offer any therapeutic benefits for the present time History of Present Illness Reason for Consultation: GIB Requesting Physician: Bryan Attending Physician: Darrell Adams MD History of Present Illness 26 year old COVID-19 positive (07/02/21) male admitted through the ED w/ history of alcoholism w. nausea/vomiting and hematemesis. GI was asked to evaluate. Initial consultation done via chart review given COVID-19 status. Per chart review, was consuming heavy ETOH intake over week, developed abd pain, nausea w/ hematemesis. in the ED. Small volume blood. HGB stable BUN normal Stool yesterday documented as brown Allergies Allergy/AdvReac Type Severity Reaction Status Date / Time No Known Allergies Allergy Unverified 07/01/21 17:04 Home Medications Medication Instructions Recorded Confirmed Type No Known Home Medications 07/01/21 07/01/21 History Patient History Medical History Arrhythmia COVID-19 Social History Smoking Status: Never smoker Hx Alcohol Use: Yes Alcohol type: beer Hx Substance Use: Yes Last Used Substance: Hours (ago) Last Used Substance Other:: AM of 07/01/21 Preferred Language: Kinyarwanda Communication Ability: Effective Biological Photographer Required: No Beliefs That Will Affect Care: None Current Living Situation: Spouse and Family Other Information That Helps Us Care for You: No Feels Safe at Home: Yes Safety Concerns: Feels Safe At This Time Assistive Devices: None Results & Data ([facility]) Vital Signs (Past 12 Hours) Vital Signs Temp Pulse Resp BP Pulse Ox 07/02/21 07:54 37 C 78 20 136/84 100 07/02/21 03:25 77 20 131/69 98 07/01/21 21:30 102 H 22 122/69 99 Laboratory Results 07/02/21 07/02/21 07/02/21 Range/Units 05:13 05:13 05:13 WBC 10.81 H D (4.8-10.8) K/uL RBC 4.60 L (4.7-6.1) M/uL Hgb 13.8 L D (14.0-18.0) g/dL Hct 40.9 L (42-52) % MCV 88.9 (80-100) fL MCH 30.0 (25-34) pg MCHC 33.7 (32-36) g/dL RDW Std Deviation 43.0 (36.4-46.3) fL RDW Coeff of Karl 13.3 (11.5-14.5) % Plt Count 164 (130-400) K/uL MPV 9.5 (7.4-10.4) fL Immature Gran % (Auto) 0.2 % Neut % (Auto) 60.9 % Lymph % (Auto) 24.1 % [place] % (Auto) 14.6 % Eos % (Auto) 0.1 % Baso % (Auto) 0.1 % Neut # (Auto) 6.58 H (1.4-6.5) K/uL Lymph # (Auto) 2.61 (1.2-3.4) K/uL [place] # (Auto) 1.58 H (0.11-0.59) K/uL Eos # (Auto) 0.01 (0-0.5) K/uL Baso # (Auto) 0.01 (0-0.2) K/uL Immature Gran # (Auto) 0.02 (0.00-0.02) K/uL PT (9.0-12.0) Seconds INR (0.9-1.1) Sodium 139 (136-145) mmol/L Potassium 3.9 (3.5-5.1) mmol/L Chloride 108 H (98-107) mmol/L Carbon Dioxide 26 (21-32) mmol/L Anion Gap 5.0 (3-11) BUN 14 (7-18) mg/dl Creatinine 1.00 D (0.6-1.4) mg/dl Est Cr Clr Drug Dosing 114.6 ml/min Est GFR ( Amer) 119.0 ml/min Est GFR (Non-Af Amer) 102.7 ml/min BUN/Creatinine Ratio 14.4 (10-20) Glucose 121 H (70-99) mg/dl Lactate 0.7 (0.4-2.0) mmol/L Calcium 8.5 D (8.5-10.1) mg/dl Magnesium 1.9 (1.8-2.4) mg/dl Total Bilirubin (0.2-1) mg/dl AST (15-37) U/L ALT (12-78) Alkaline Phosphatase (45-117) U/L Troponin I (0-0.045) ng/ml C-Reactive Protein (0-0.29) mg/dl Total Protein (6.4-8.2) gm/dl Albumin (3.4-5.0) gm/dl Globulin (2.5-4.0) gm/dl Albumin/Globulin Ratio (0.9-2) Lipase (73-393) U/L Procalcitonin (0-0.5) ng/ml Urine Color Urine Appearance (Clear) Urine pH (4.5-7.5) Ur Specific [place] (1.000-1.030) Urine Protein (Negative) Urine Glucose (UA) (Negative) Urine Ketones (Negative) Urine Blood (Negative) Urine Nitrite (Negative) Urine Bilirubin (Negative) Urine Urobilinogen (Negative) Ur Leukocyte Esterase (Negative) Urine WBC (Auto) (0-5) /hpf Urine RBC (Auto) (0-4) /hpf U Hyaline Cast (Auto) (0-5) /lpf U Epithel Cells (Auto) (0-5) /lpf Urine Bacteria (Auto) (Negative) Granular Casts (0) /lpf WBC Casts (0) /lpf Urine Mucus (None Prsent) Salicylates (2.8-20) mg/dl Acetaminophen (10-30) ug/ml A. phagocytophilum DNA Lyme Disease IgG Ab (Negative) Lyme IgG (Western Blot) Lyme IgG 18 kDa Band Lyme IgG 23 kDa Band Lyme IgG 28 kDa Band Lyme IgG 30 kDa Band Lyme IgG 39 kDa Band Lyme IgG 41 kDa Band Lyme IgG 45 kDa Band Lyme IgG 58 kDa Band Lyme IgG 66 kDa Band Lyme IgG 93 kDa Band Lyme IgM Ab (WB) Lyme Disease IgM Ab (Negative) Lyme IgM 23 kDa Band Lyme IgM 39 kDa Band Lyme IgM 41 kDa Band SARS-CoV-2 (PCR) (Negative) E.chaffeensis DNA (PCR) Influenza Type A (PCR) (Neg) Influenza Type B (PCR) (Neg) Q Fever Phase I IgG Ab Q Fever Phase I IgM Ab Q Fever Phase II IgG Ab Q Fever Phase II IgM Ab RSV (RT-PCR) (Neg) Rickettsia IgG Ab Rickettsia IgM Ab Typhus Fever IgG Ab Typhus Fever IgM Ab 07/01/21 07/01/21 07/01/21 Range/Units 20:10 20:10 20:10 WBC (4.8-10.8) K/uL RBC (4.7-6.1) M/uL Hgb (14.0-18.0) g/dL Hct (42-52) % MCV (80-100) fL MCH (25-34) pg MCHC (32-36) g/dL RDW Std Deviation (36.4-46.3) fL RDW Coeff of Karl (11.5-14.5) % Plt Count (130-400) K/uL MPV (7.4-10.4) fL Immature Gran % (Auto) % Neut % (Auto) % Lymph % (Auto) % [place] % (Auto) % Eos % (Auto) % Baso % (Auto) % Neut # (Auto) (1.4-6.5) K/uL Lymph # (Auto) (1.2-3.4) K/uL [place] # (Auto) (0.11-0.59) K/uL Eos # (Auto) (0-0.5) K/uL Baso # (Auto) (0-0.2) K/uL Immature Gran # (Auto) (0.00-0.02) K/uL PT (9.0-12.0) Seconds INR (0.9-1.1) Sodium (136-145) mmol/L Potassium (3.5-5.1) mmol/L Chloride (98-107) mmol/L Carbon Dioxide (21-32) mmol/L Anion Gap (3-11) BUN (7-18) mg/dl Creatinine (0.6-1.4) mg/dl Est Cr Clr Drug Dosing ml/min Est GFR ( Amer) ml/min Est GFR (Non-Af Amer) ml/min BUN/Creatinine Ratio (10-20) Glucose (70-99) mg/dl Lactate 2.6 H* (0.4-2.0) mmol/L Calcium (8.5-10.1) mg/dl Magnesium (1.8-2.4) mg/dl Total Bilirubin (0.2-1) mg/dl AST (15-37) U/L ALT (12-78) Alkaline Phosphatase (45-117) U/L Troponin I (0-0.045) ng/ml C-Reactive Protein (0-0.29) mg/dl Total Protein (6.4-8.2) gm/dl Albumin (3.4-5.0) gm/dl Globulin (2.5-4.0) gm/dl Albumin/Globulin Ratio (0.9-2) Lipase (73-393) U/L Procalcitonin (0-0.5) ng/ml Urine Color Urine Appearance (Clear) Urine pH (4.5-7.5) Ur Specific [place] (1.000-1.030) Urine Protein (Negative) Urine Glucose (UA) (Negative) Urine Ketones (Negative) Urine Blood (Negative) Urine Nitrite (Negative) Urine Bilirubin (Negative) Urine Urobilinogen (Negative) Ur Leukocyte Esterase (Negative) Urine WBC (Auto) (0-5) /hpf Urine RBC (Auto) (0-4) /hpf U Hyaline Cast (Auto) (0-5) /lpf U Epithel Cells (Auto) (0-5) /lpf Urine Bacteria (Auto) (Negative) Granular Casts (0) /lpf WBC Casts (0) /lpf Urine Mucus (None Prsent) Salicylates < 1.7 L (2.8-20) mg/dl Acetaminophen < 2 L (10-30) ug/ml A. phagocytophilum DNA Pending Lyme Disease IgG Ab (Negative) Lyme IgG (Western Blot) Lyme IgG 18 kDa Band Lyme IgG 23 kDa Band Lyme IgG 28 kDa Band Lyme IgG 30 kDa Band Lyme IgG 39 kDa Band Lyme IgG 41 kDa Band Lyme IgG 45 kDa Band Lyme IgG 58 kDa Band Lyme IgG 66 kDa Band Lyme IgG 93 kDa Band Lyme IgM Ab (WB) Lyme Disease IgM Ab (Negative) Lyme IgM 23 kDa Band Lyme IgM 39 kDa Band Lyme IgM 41 kDa Band SARS-CoV-2 (PCR) (Negative) E.chaffeensis DNA (PCR) Influenza Type A (PCR) (Neg) Influenza Type B (PCR) (Neg) Q Fever Phase I IgG Ab Q Fever Phase I IgM Ab Q Fever Phase II IgG Ab Q Fever Phase II IgM Ab RSV (RT-PCR) (Neg) Rickettsia IgG Ab Rickettsia IgM Ab Typhus Fever IgG Ab Typhus Fever IgM Ab 07/01/21 07/01/21 07/01/21 Range/Units 20:10 20:10 18:30 WBC (4.8-10.8) K/uL RBC (4.7-6.1) M/uL Hgb (14.0-18.0) g/dL Hct (42-52) % MCV (80-100) fL MCH (25-34) pg MCHC (32-36) g/dL RDW Std Deviation (36.4-46.3) fL RDW Coeff of Karl (11.5-14.5) % Plt Count (130-400) K/uL MPV (7.4-10.4) fL Immature Gran % (Auto) % Neut % (Auto) % Lymph % (Auto) % [place] % (Auto) % Eos % (Auto) % Baso % (Auto) % Neut # (Auto) (1.4-6.5) K/uL Lymph # (Auto) (1.2-3.4) K/uL [place] # (Auto) (0.11-0.59) K/uL Eos # (Auto) (0-0.5) K/uL Baso # (Auto) (0-0.2) K/uL Immature Gran # (Auto) (0.00-0.02) K/uL PT (9.0-12.0) Seconds INR (0.9-1.1) Sodium (136-145) mmol/L Potassium (3.5-5.1) mmol/L Chloride (98-107) mmol/L Carbon Dioxide (21-32) mmol/L Anion Gap (3-11) BUN (7-18) mg/dl Creatinine (0.6-1.4) mg/dl Est Cr Clr Drug Dosing ml/min Est GFR ( Amer) ml/min Est GFR (Non-Af Amer) ml/min BUN/Creatinine Ratio (10-20) Glucose (70-99) mg/dl Lactate (0.4-2.0) mmol/L Calcium (8.5-10.1) mg/dl Magnesium (1.8-2.4) mg/dl Total Bilirubin (0.2-1) mg/dl AST (15-37) U/L ALT (12-78) Alkaline Phosphatase (45-117) U/L Troponin I (0-0.045) ng/ml C-Reactive Protein (0-0.29) mg/dl Total Protein (6.4-8.2) gm/dl Albumin (3.4-5.0) gm/dl Globulin (2.5-4.0) gm/dl Albumin/Globulin Ratio (0.9-2) Lipase (73-393) U/L Procalcitonin (0-0.5) ng/ml Urine Color Yellow Urine Appearance Clear (Clear) Urine pH 5.0 (4.5-7.5) Ur Specific [place] > 1.045 H (1.000-1.030) Urine Protein 2+ H (Negative) Urine Glucose (UA) Negative (Negative) Urine Ketones 2+ H (Negative) Urine Blood 1+ H (Negative) Urine Nitrite Negative (Negative) Urine Bilirubin Negative (Negative) Urine Urobilinogen Negative (Negative) Ur Leukocyte Esterase Negative (Negative) Urine WBC (Auto) 1-5 (0-5) /hpf Urine RBC (Auto) 0-4 (0-4) /hpf U Hyaline Cast (Auto) 10-30 H (0-5) /lpf U Epithel Cells (Auto) 10-20 H (0-5) /lpf Urine Bacteria (Auto) Negative (Negative) Granular Casts 10-20 H (0) /lpf WBC Casts 1-5 H (0) /lpf Urine Mucus Present A (None Prsent) Salicylates (2.8-20) mg/dl Acetaminophen (10-30) ug/ml A. phagocytophilum DNA Lyme Disease IgG Ab (Negative) Lyme IgG (Western Blot) Lyme IgG 18 kDa Band Lyme IgG 23 kDa Band Lyme IgG 28 kDa Band Lyme IgG 30 kDa Band Lyme IgG 39 kDa Band Lyme IgG 41 kDa Band Lyme IgG 45 kDa Band Lyme IgG 58 kDa Band Lyme IgG 66 kDa Band Lyme IgG 93 kDa Band Lyme IgM Ab (WB) Lyme Disease IgM Ab (Negative) Lyme IgM 23 kDa Band Lyme IgM 39 kDa Band Lyme IgM 41 kDa Band SARS-CoV-2 (PCR) (Negative) E.chaffeensis DNA (PCR) Pending Influenza Type A (PCR) (Neg) Influenza Type B (PCR) (Neg) Q Fever Phase I IgG Ab Pending Q Fever Phase I IgM Ab Pending Q Fever Phase II IgG Ab Pending Q Fever Phase II IgM Ab Pending RSV (RT-PCR) (Neg) Rickettsia IgG Ab Pending Rickettsia IgM Ab Pending Typhus Fever IgG Ab Pending Typhus Fever IgM Ab Pending 07/01/21 07/01/21 07/01/21 Range/Units 18:00 18:00 17:20 WBC (4.8-10.8) K/uL RBC (4.7-6.1) M/uL Hgb (14.0-18.0) g/dL Hct (42-52) % MCV (80-100) fL MCH (25-34) pg MCHC (32-36) g/dL RDW Std Deviation (36.4-46.3) fL RDW Coeff of Karl (11.5-14.5) % Plt Count (130-400) K/uL MPV (7.4-10.4) fL Immature Gran % (Auto) % Neut % (Auto) % Lymph % (Auto) % [place] % (Auto) % Eos % (Auto) % Baso % (Auto) % Neut # (Auto) (1.4-6.5) K/uL Lymph # (Auto) (1.2-3.4) K/uL [place] # (Auto) (0.11-0.59) K/uL Eos # (Auto) (0-0.5) K/uL Baso # (Auto) (0-0.2) K/uL Immature Gran # (Auto) (0.00-0.02) K/uL PT 10.7 (9.0-12.0) Seconds INR 1.1 (0.9-1.1) Sodium (136-145) mmol/L Potassium (3.5-5.1) mmol/L Chloride (98-107) mmol/L Carbon Dioxide (21-32) mmol/L Anion Gap (3-11) BUN (7-18) mg/dl Creatinine (0.6-1.4) mg/dl Est Cr Clr Drug Dosing ml/min Est GFR ( Amer) ml/min Est GFR (Non-Af Amer) ml/min BUN/Creatinine Ratio (10-20) Glucose (70-99) mg/dl Lactate 5.9 H* (0.4-2.0) mmol/L Calcium (8.5-10.1) mg/dl Magnesium (1.8-2.4) mg/dl Total Bilirubin (0.2-1) mg/dl AST (15-37) U/L ALT (12-78) Alkaline Phosphatase (45-117) U/L Troponin I (0-0.045) ng/ml C-Reactive Protein (0-0.29) mg/dl Total Protein (6.4-8.2) gm/dl Albumin (3.4-5.0) gm/dl Globulin (2.5-4.0) gm/dl Albumin/Globulin Ratio (0.9-2) Lipase (73-393) U/L Procalcitonin (0-0.5) ng/ml Urine Color Urine Appearance (Clear) Urine pH (4.5-7.5) Ur Specific [place] (1.000-1.030) Urine Protein (Negative) Urine Glucose (UA) (Negative) Urine Ketones (Negative) Urine Blood (Negative) Urine Nitrite (Negative) Urine Bilirubin (Negative) Urine Urobilinogen (Negative) Ur Leukocyte Esterase (Negative) Urine WBC (Auto) (0-5) /hpf Urine RBC (Auto) (0-4) /hpf U Hyaline Cast (Auto) (0-5) /lpf U Epithel Cells (Auto) (0-5) /lpf Urine Bacteria (Auto) (Negative) Granular Casts (0) /lpf WBC Casts (0) /lpf Urine Mucus (None Prsent) Salicylates (2.8-20) mg/dl Acetaminophen (10-30) ug/ml A. phagocytophilum DNA Lyme Disease IgG Ab (Negative) Lyme IgG (Western Blot) Lyme IgG 18 kDa Band Lyme IgG 23 kDa Band Lyme IgG 28 kDa Band Lyme IgG 30 kDa Band Lyme IgG 39 kDa Band Lyme IgG 41 kDa Band Lyme IgG 45 kDa Band Lyme IgG 58 kDa Band Lyme IgG 66 kDa Band Lyme IgG 93 kDa Band Lyme IgM Ab (WB) Lyme Disease IgM Ab (Negative) Lyme IgM 23 kDa Band Lyme IgM 39 kDa Band Lyme IgM 41 kDa Band SARS-CoV-2 (PCR) POSITIVE A* (Negative) E.chaffeensis DNA (PCR) Influenza Type A (PCR) Negative (Neg) Influenza Type B (PCR) Negative (Neg) Q Fever Phase I IgG Ab Q Fever Phase I IgM Ab Q Fever Phase II IgG Ab Q Fever Phase II IgM Ab RSV (RT-PCR) Negative (Neg) Rickettsia IgG Ab Rickettsia IgM Ab Typhus Fever IgG Ab Typhus Fever IgM Ab 07/01/21 07/01/21 07/01/21 Range/Units 16:10 16:10 16:10 WBC (4.8-10.8) K/uL RBC (4.7-6.1) M/uL Hgb (14.0-18.0) g/dL Hct (42-52) % MCV (80-100) fL MCH (25-34) pg MCHC (32-36) g/dL RDW Std Deviation (36.4-46.3) fL RDW Coeff of Karl (11.5-14.5) % Plt Count (130-400) K/uL MPV (7.4-10.4) fL Immature Gran % (Auto) % Neut % (Auto) % Lymph % (Auto) % [place] % (Auto) % Eos % (Auto) % Baso % (Auto) % Neut # (Auto) (1.4-6.5) K/uL Lymph # (Auto) (1.2-3.4) K/uL [place] # (Auto) (0.11-0.59) K/uL Eos # (Auto) (0-0.5) K/uL Baso # (Auto) (0-0.2) K/uL Immature Gran # (Auto) (0.00-0.02) K/uL PT (9.0-12.0) Seconds INR (0.9-1.1) Sodium 140 (136-145) mmol/L Potassium 4.1 (3.5-5.1) mmol/L Chloride 104 (98-107) mmol/L Carbon Dioxide 16 L (21-32) mmol/L Anion Gap 20.0 H (3-11) BUN 16 (7-18) mg/dl Creatinine 1.56 H (0.6-1.4) mg/dl Est Cr Clr Drug Dosing 73.4 ml/min Est GFR ( Amer) 69.5 ml/min Est GFR (Non-Af Amer) 60.0 ml/min BUN/Creatinine Ratio 10.4 (10-20) Glucose 159 H (70-99) mg/dl Lactate (0.4-2.0) mmol/L Calcium 10.4 H (8.5-10.1) mg/dl Magnesium (1.8-2.4) mg/dl Total Bilirubin 0.4 (0.2-1) mg/dl AST 31 (15-37) U/L ALT 65 (12-78) Alkaline Phosphatase 149 H (45-117) U/L Troponin I < 0.015 (0-0.045) ng/ml C-Reactive Protein 0.68 H (0-0.29) mg/dl Total Protein 9.4 H (6.4-8.2) gm/dl Albumin 5.3 H (3.4-5.0) gm/dl Globulin 4.1 H (2.5-4.0) gm/dl Albumin/Globulin Ratio 1.3 (0.9-2) Lipase 76 (73-393) U/L Procalcitonin 9.89 H (0-0.5) ng/ml Urine Color Urine Appearance (Clear) Urine pH (4.5-7.5) Ur Specific [place] (1.000-1.030) Urine Protein (Negative) Urine Glucose (UA) (Negative) Urine Ketones (Negative) Urine Blood (Negative) Urine Nitrite (Negative) Urine Bilirubin (Negative) Urine Urobilinogen (Negative) Ur Leukocyte Esterase (Negative) Urine WBC (Auto) (0-5) /hpf Urine RBC (Auto) (0-4) /hpf U Hyaline Cast (Auto) (0-5) /lpf U Epithel Cells (Auto) (0-5) /lpf Urine Bacteria (Auto) (Negative) Granular Casts (0) /lpf WBC Casts (0) /lpf Urine Mucus (None Prsent) Salicylates (2.8-20) mg/dl Acetaminophen (10-30) ug/ml A. phagocytophilum DNA Lyme Disease IgG Ab Negative (Negative) Lyme IgG (Western Blot) Pending Lyme IgG 18 kDa Band Pending Lyme IgG 23 kDa Band Pending Lyme IgG 28 kDa Band Pending Lyme IgG 30 kDa Band Pending Lyme IgG 39 kDa Band Pending Lyme IgG 41 kDa Band Pending Lyme IgG 45 kDa Band Pending Lyme IgG 58 kDa Band Pending Lyme IgG 66 kDa Band Pending Lyme IgG 93 kDa Band Pending Lyme IgM Ab (WB) Pending Lyme Disease IgM Ab Equivocal A (Negative) Lyme IgM 23 kDa Band Pending Lyme IgM 39 kDa Band Pending Lyme IgM 41 kDa Band Pending SARS-CoV-2 (PCR) (Negative) E.chaffeensis DNA (PCR) Influenza Type A (PCR) (Neg) Influenza Type B (PCR) (Neg) Q Fever Phase I IgG Ab Q Fever Phase I IgM Ab Q Fever Phase II IgG Ab Q Fever Phase II IgM Ab RSV (RT-PCR) (Neg) Rickettsia IgG Ab Rickettsia IgM Ab Typhus Fever IgG Ab Typhus Fever IgM Ab 07/01/21 Range/Units 16:10 WBC 26.98 H (4.8-10.8) K/uL RBC 5.68 (4.7-6.1) M/uL Hgb 17.6 (14.0-18.0) g/dL Hct 52.1 H (42-52) % MCV 91.7 (80-100) fL MCH 31.0 (25-34) pg MCHC 33.8 (32-36) g/dL RDW Std Deviation 44.7 (36.4-46.3) fL RDW Coeff of Karl 13.3 (11.5-14.5) % Plt Count 318 (130-400) K/uL MPV 10.0 (7.4-10.4) fL Immature Gran % (Auto) 0.4 % Neut % (Auto) 84.6 % Lymph % (Auto) 13.2 % [place] % (Auto) 1.7 % Eos % (Auto) 0.0 % Baso % (Auto) 0.1 % Neut # (Auto) 22.82 H (1.4-6.5) K/uL Lymph # (Auto) 3.55 H (1.2-3.4) K/uL [place] # (Auto) 0.47 (0.11-0.59) K/uL Eos # (Auto) 0.00 (0-0.5) K/uL Baso # (Auto) 0.02 (0-0.2) K/uL Immature Gran # (Auto) 0.12 H (0.00-0.02) K/uL PT (9.0-12.0) Seconds INR (0.9-1.1) Sodium (136-145) mmol/L Potassium (3.5-5.1) mmol/L Chloride (98-107) mmol/L Carbon Dioxide (21-32) mmol/L Anion Gap (3-11) BUN (7-18) mg/dl Creatinine (0.6-1.4) mg/dl Est Cr Clr Drug Dosing ml/min Est GFR ( Amer) ml/min Est GFR (Non-Af Amer) ml/min BUN/Creatinine Ratio (10-20) Glucose (70-99) mg/dl Lactate (0.4-2.0) mmol/L Calcium (8.5-10.1) mg/dl Magnesium (1.8-2.4) mg/dl Total Bilirubin (0.2-1) mg/dl AST (15-37) U/L ALT (12-78) Alkaline Phosphatase (45-117) U/L Troponin I (0-0.045) ng/ml C-Reactive Protein (0-0.29) mg/dl Total Protein (6.4-8.2) gm/dl Albumin (3.4-5.0) gm/dl Globulin (2.5-4.0) gm/dl Albumin/Globulin Ratio (0.9-2) Lipase (73-393) U/L Procalcitonin (0-0.5) ng/ml Urine Color Urine Appearance (Clear) Urine pH (4.5-7.5) Ur Specific [place] (1.000-1.030) Urine Protein (Negative) Urine Glucose (UA) (Negative) Urine Ketones (Negative) Urine Blood (Negative) Urine Nitrite (Negative) Urine Bilirubin (Negative) Urine Urobilinogen (Negative) Ur Leukocyte Esterase (Negative) Urine WBC (Auto) (0-5) /hpf Urine RBC (Auto) (0-4) /hpf U Hyaline Cast (Auto) (0-5) /lpf U Epithel Cells (Auto) (0-5) /lpf Urine Bacteria (Auto) (Negative) Granular Casts (0) /lpf WBC Casts (0) /lpf Urine Mucus (None Prsent) Salicylates (2.8-20) mg/dl Acetaminophen (10-30) ug/ml A. phagocytophilum DNA Lyme Disease IgG Ab (Negative) Lyme IgG (Western Blot) Lyme IgG 18 kDa Band Lyme IgG 23 kDa Band Lyme IgG 28 kDa Band Lyme IgG 30 kDa Band Lyme IgG 39 kDa Band Lyme IgG 41 kDa Band Lyme IgG 45 kDa Band Lyme IgG 58 kDa Band Lyme IgG 66 kDa Band Lyme IgG 93 kDa Band Lyme IgM Ab (WB) Lyme Disease IgM Ab (Negative) Lyme IgM 23 kDa Band Lyme IgM 39 kDa Band Lyme IgM 41 kDa Band SARS-CoV-2 (PCR) (Negative) E.chaffeensis DNA (PCR) Influenza Type A (PCR) (Neg) Influenza Type B (PCR) (Neg) Q Fever Phase I IgG Ab Q Fever Phase I IgM Ab Q Fever Phase II IgG Ab Q Fever Phase II IgM Ab RSV (RT-PCR) (Neg) Rickettsia IgG Ab Rickettsia IgM Ab Typhus Fever IgG Ab Typhus Fever IgM Ab (1) Vomiting Nausea presence: with nausea Vomiting type: unspecified Qualified Code(s): R11.2 - Nausea with vomiting, unspecified
[2021-07-02] MEDS: DOXYCYCLINE HYCLATE 100 MG in DEXTROSE 5% 100 ML IV SCH ×2 (09:54→22:45)
[2021-07-02] MEDS ORDERED: LORazepam 2 MG/4 ML VIAL IV PRN (12:01)
[2021-07-02] MEDS ORDERED: LORazepam 3 MG/6 ML VIAL IV PRN (12:01)
[2021-07-02] MEDS ORDERED: LORazepam 1 MG/2 ML VIAL IV PRN (12:01)
[2021-07-02] MEDS ORDERED: THIAMINE HCL 100 MG in SYRINGE 9 ML IV SCH (12:01)
[2021-07-02] MEDS ORDERED: ATIVAN IV ALCOHOL WITHDRAWL IV PRN (12:01)
[2021-07-02] MEDS ORDERED: FOLIC ACID 1 MG in SYRINGE 9.8 ML IV SCH (12:01)
[2021-07-02 12:03] LABS: Hematocrit (blood only) 40.7 % (42-52); Hemoglobin 13.7 g/dL (14.0-18.0)
[2021-07-02] MEDS: NSS + 20MEQ KCL 20 MEQ/1,000 ML BAG IV SCH (13:32)
--- NOTE | 2021-07-02 16:47 | Hospitalist Progress Note ---
Date of Service July 02, 2021 Assessment & Plan (1) Hematemesis: (2) COVID-19 virus infection: Plan: ASSESSMENT AND PLAN: � This is a 26-year-old male who presents with nausea, vomiting, one episode of hematemesis, alcoholism, COVID-19 and Lyme disease. Per admitting physician Dr. 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 No recurrence since admission Hemoglobin stable around 13 Protonix drip started GI consulted-EGD not recommended at this point Continue Protonix drip, monitor hemoglobin Tolerating liquid diet will advance to soft Currently on ceftriaxone IV Monitor closely Alcohol use Patient reports drinking alcohol only on weekends Alcohol withdrawal protocol at this point, no gabapentin or Librium taper for now, only as needed Ativan 2.� Lactic acidosis� most likely from alcoholism.� Resolved IV fluids 3.� Acute kidney injury.� Resolved with IV fluids 4.� Leukocytosis.� Lyme screen positive.� Elevated procalcitonin.� Follow-up Lyme Western blot, anaplasmosis DNA Continue ceftriaxone plus doxycycline 5.� COVID-19 positive.� Diagnosed 06/20/2021, patient had loss of taste and smell but no other symptoms Currently asymptomatic On isolation 6.� Deep venous thrombosis prophylaxis: SCDs in light of hematemesis DISPOSITION:�Lives at home with family Anticipate discharge to home tomorrow if patient is medically stable including stable hemoglobin plan of care discussed with patient in detail and at length all questions answered He is understanding, agreeable, comfortable with the plan of care � Admission and Anticipated Discharge Date Admission Date: July 01, 2021 Subjective Follow-up for hematemesis, recent COVID-19 infection, etc. Seen resting in bed, comfortable, watching TV, pleasant States he feels better overall Minimal discomfort epigastric area No recurrence of hematemesis, no melena hematochezia Denies nausea vomiting No fevers or chills, chest pain, dizziness, palpitations, weakness No shortness of breath, sore throat, cough Denies tremors, hallucinations, sweating States he only drinks on weekends No other symptoms Review of Systems Review of Systems: all noted and negative except for above Physical Exam Physical Exam: General- oriented x 3, not in distress, speaks in sentences with no effort or accessory muscle use Head- atraumatic Eyes- PERRL, EOMI, anicteric ENT- oropharynx clear Neck- supple, no JVD, no adenopathy, no thyromegaly; carotids +2/2, no bruits appreciated Lungs- clear to auscultation bilaterally, no rales/wheezes Heart- normal rate, regular rhythm; no murmur, no gallop, no rub appreciated Abdomen- normal bowel sounds, nondistended, soft, nontender, no masses or hepatosplenomegaly Extremities- no pretibial edema, no calf tenderness; peripheral pulses intact Neuro- alert, oriented x 3; CN 2-12 grossly intact; motor 5/5 bilaterally;sensation 100% on all extremities; no other gross focal neurologic deficits Skin- warm & dry Results & Data Results & Data ([facility]) Vital Signs (Past 12 Hours) Vital Signs Temp Pulse Resp BP Pulse Ox 07/02/21 12:11 36.8 C 67 20 128/89 100 07/02/21 07:54 37 C 78 20 136/84 100 all noted and reviewed including below
[2021-07-02 17:29] LABS: Hemoglobin 14.2 g/dL (14.0-18.0)
[2021-07-02] MEDS ORDERED: cefTRIAXone SODIUM 2,000 MG in DEXTROSE 5% 50 ML IV SCH (20:00)
[2021-07-02] MEDS ORDERED: cefTRIAXone SODIUM 2000MG/70ML D5W IV ONE (20:45)
[2021-07-03] MEDS: NSS + 20MEQ KCL 20 MEQ/1,000 ML BAG IV SCH ×2 (00:25→09:15)
[2021-07-03] MEDS: PANTOprazole 40 MG in DEXTROSE 5% 100 ML IV SCH ×2 (04:04→09:14)
--- NOTE | 2021-07-03 08:36 | Communication Note ---
Date of Service: July 03, 2021 Chart reviewed. Remains on IV PPI for hematemesis prior to arrival. Hgb has remained stable, BUN non elevated and no further evidence of vomiting has been documented. No documentation of dark stools. Would recommend advancing diet to clears, then advancing as tolerated. Can transition to PO PPI BID. If remains clinically stable without evidence of GI bleed consider discharge home today on PPI BID. Recommend ETOH cessation and avoidance of NSAIDs. Recall GI service as needed. Thank you for allowing us to participate in the care of this patient. Pl ease call with any acute changes, questions or concerns. Please see addendum below with additional recommendation from my supervising physician.
[2021-07-03] MEDS: DOXYCYCLINE HYCLATE 100 MG in DEXTROSE 5% 100 ML IV SCH (09:14)
[2021-07-03] MEDS: FOLIC ACID 1 MG in SYRINGE 9.8 ML IV SCH (09:14)
[2021-07-03] MEDS: THIAMINE HCL 100 MG in SYRINGE 9 ML IV SCH (09:15)
[2021-07-03 09:31] LABS: Basophils # (auto) 0.01 K/uL (0-0.2); Basophils % (auto) 0.2 %; Eosinophils # (auto) 0.03 K/uL (0-0.5); Eosinophils % (auto) 0.6 %; Hematocrit (blood only) 42.8 % (42-52); Hemoglobin 14.7 g/dL (14.0-18.0); Immature Granulocytes # (auto) 0.01 K/uL (0.00-0.02); Immature Granulocytes % (auto) 0.2 %; Lymphocytes # (auto) 1.54 K/uL (1.2-3.4); Lymphocytes % (auto) 30.6 %; Mean Corpuscular Hemoglobin 30.9 pg (25-34); Mean Corpuscular Hgb Conc 34.3 g/dL (32-36); Mean Corpuscular Volume 89.9 fL (80-100); Mean Platelet Volume 9.8 fL (7.4-10.4); Monocytes # (auto) 0.33 K/uL (0.11-0.59); Monocytes % (auto) 6.6 %; Neutrophils # (auto) 3.11 K/uL (1.4-6.5); Neutrophils % (auto) 61.8 %; Platelet Count 133 K/uL (130-400); Red Blood Count 4.76 M/uL (4.7-6.1); White Blood Count 5.03 K/uL (4.8-10.8)
[2021-07-03 09:48] LABS: BUN Creatinine Ratio 11.3 (10-20); Calcium 9.5 mg/dl (8.5-10.1); Creatinine Clr Calc Pharmacy 130.2 ml/min; Est GFR (African American) 136.4 ml/min; Est GFR (Non-African American) 117.7 ml/min; Potassium 3.8 mmol/L (3.5-5.1)
--- NOTE | 2021-07-03 12:59 | Hospitalist Progress Note ---
Date of Service July 03, 2021 Assessment & Plan (1) Hematemesis: (2) COVID-19 virus infection: Plan: ASSESSMENT AND PLAN: � This is a 26-year-old male who presents with nausea, vomiting, one episode of hematemesis, alcoholism, COVID-19 and Lyme disease. Per admitting physician Dr. Lenoard with addendum: 1.� Hematemesis, with nausea and vomiting Likely secondary to alcoholic gastritis, possible Beatriz-Escalante tear Similar presentation in 2016 with also alcoholism, most likely from alcoholic gastritis.� CT scan of the chest and abdomen was unremarkable. No recurrence since admission Hemoglobin stable around 13 Protonix drip started GI consulted-EGD not recommended at this point Globin stable around 13 No recurrence of hematemesis or vomiting while admitted Protonix 40 mg twice a day for 1 month, then daily Follow-up with GI as an outpatient Alcohol use Patient reports drinking alcohol only on weekends No signs of alcohol withdrawal 2.� Lactic acidosis� most likely from alcoholism.� Resolved IV fluids 3.� Acute kidney injury.� Resolved with IV fluids 4.� Leukocytosis.� Lyme screen positive.� Elevated procalcitonin.� Follow-up Lyme Western blot, anaplasmosis DNA Given ceftriaxone IV plus doxycycline while admitted Awaiting results of Lyme Western blot, anaplasmosis DNA: Follow-up Discharged on doxycycline 100 mg p.o. twice daily x12 days to complete 14-day course 5.� COVID-19 positive.� Diagnosed June 19, 2021, patient had loss of taste and smell but no other symptoms Currently asymptomatic May be taken off isolation 6.� Deep venous thrombosis prophylaxis: SCDs in light of hematemesis DISPOSITION:� Discharge home today Follow-up with PCP in 1 week plan of care discussed with patient in detail and at length all questions answered He is understanding, agreeable, comfortable with the plan of care � Admission and Anticipated Discharge Date Admission Date: July 01, 2021 Subjective Follow-up for hematemesis, possible alcoholic gastritis, possible Lyme disease, etc. Seen resting in bed, watching TV, comfortable, not in distress, very pleasant States he feels much better overall No recurrence of vomiting, hematemesis No abdominal pain, chest pain, shortness of breath, palpitations, dizziness, headache No other symptoms States he is ready for discharge today Review of Systems Review of Systems: all noted and negative except for above Physical Exam Physical Exam: General- oriented x 3, not in distress, speaks in sentences with no effort or accessory muscle use Eyes- anicteric Neck- no JVD Lungs- clear breath sounds bilaterally, no rales/wheezes Heart- normal rate, regular rhythm; no murmurs Abdomen- normal bowel sounds, nondistended, soft, nontender Extremities- no pretibial edema, no calf tenderness Neuro- alert, oriented x 3; no gross focal neurologic deficits Skin- warm & dry Results & Data Results & Data ([facility]) Vital Signs (Past 12 Hours) Vital Signs Temp Pulse Pulse Resp BP Pulse Ox 07/03/21 08:24 36.8 C 70 16 125/95 100 07/03/21 04:04 36.4 C L 66 14 143/72 H 99 07/03/21 01:21 68 22 96 all noted and reviewed including below
--- NOTE | 2021-07-03 13:01 | Discharge Summary ---
Date of Service July 03, 2021 Admission HPI Per Admitting Provider HISTORY OF PRESENT ILLNESS:� This is a 26-year-old male with past medical history significant for allergic rhinitis, history of alcoholism, who presents with nausea, vomiting and had an episode of hematemesis in the ER.� The patient had COVID symptoms like loss of sense of smell and taste on 06/16-06/17, and he was diagnosed with COVID on 06/19, but he was doing okay.� He went for a hunting camp at the weekend and he drank 12 beers last night and since today morning, he is having lot of nausea, vomiting, which is not getting better and has abdominal discomfort when he was vomiting.� He also felt short of breath and some chest pain, but that all resolved now.� He had a small episode of hematemesis in the ER and his fiancee is saying that she took off a tick from the left side of his abdomen and she took 4 tics since October. Never had Lyme disease.� Currently, patient is somewhat tachycardic, otherwise he is saturating fine and his white count was 26,000.� His initial lactate was 5.9, repeat was 2.6.� Troponin is negative.� C-reactive protein is 0.6. COVID was positive.� Influenza A and B negative.� Lyme screen pending.� CT of the chest and CT of the abdomen and pelvis unremarkable.� Currently, patient is resting comfortably and hemodynamically stable.� Denies any headache.� No blurred visions, no earache, no runny nose, no sore throat, no cough, no shortness of breath except when he was having a lot of nausea, vomiting, he felt short of breath and chest pain that has resolved, abdominal pain resolved.� No diarrhea or constipation, no blood in stools or black stools.� Normal micturition.� No swelling in the legs.� The patient was admitted with a similar presentation in 2016 with nausea, vomiting, abdominal pain and hematemesis.� At that time, he was status post EGD on 10/30/2015 and found inflamed esophageal rings, possible eosinophilic esophagitis.� He was cleared for discharge with Protonix 40 mg b.i.d.� The patient states he does not drink regularly, he only drinks heavily once in a while mostly in the weekends and does not think he will get withdrawal symptoms. Admission Exam (Per Admitting) Constitutional GENERAL:� The patient is of moderate build, not in acute distress. VITAL SIGNS:� Temperature 35.7, pulse 109, respiratory rate 27, blood pressure 145/83, oxygen 96% on room air. HEENT:� Pupils equal, round and reactive to light.� Oral mucosa moist. NECK:� No JVD, no neck masses. CARDIOVASCULAR:� S1 and S2 heard, tachycardia.� No murmurs. RESPIRATORY SYSTEM:� Normal AP diameter.� No accessory muscle use.� No wheezing, no crackles. ABDOMEN:� Soft, bowel sounds present.� Nontender, no distention.� Small erythematous site seen on the left side of the abdomen at the tic bite site. EXTREMITIES:� No edema, no erythema. Discharge Data Consultations 07/01/21 19:21 ED Decision to Admit Stat 07/02/21 08:00 Consult Gastroenterology Routine Procedures Performed XR chest 1V portable CLINICAL HISTORY: hematemesis � TECHNIQUE: Single frontal radiograph of the chest was obtained.� Comparison: None available at the time of this dictation. FINDINGS: No lines and tubes are seen. The cardiomediastinal silhouette is normal. The lungs are clear. No evidence of pleural effusion or pneumothorax. IMPRESSION: No acute chest disease. ACT 112: Negative or not required by law. CT abd pelvis IV con only CLINICAL HISTORY: abdominal pain, vomiting TECHNIQUE: Helical axial images of the abdomen and pelvis were obtained and displayed. Automated dose lowering techniques and/or adjustment according to patient size were utilized for this exam.� This exam was performed with intravenous contrast. COMPARISON: Comparison is made to CT abdomen pelvis 10/30/2015 FINDINGS: Lower chest:� For findings above the diaphragm, please see CT chest performed same day. Liver: Hepatic steatosis is noted. Gallbladder and biliary tree: No calcified gallstones. Normal caliber wall. No intra- or extrahepatic biliary ductal dilation. Pancreas: Unremarkable, no focal lesions. Spleen: Unremarkable. Adrenals: Unremarkable. Kidneys and ureters: Unremarkable. Bladder: Unremarkable. Reproductive organs: Unremarkable. Bowel: A hiatal hernia is seen. Lymph nodes Retroperitoneal: Unremarkable. Mesenteric: Unremarkable. Pelvic: Unremarkable. Peritoneum: Normal Vessels: Unremarkable. Abdominal wall: Unremarkable. Bones: Unremarkable. IMPRESSION: No acute abnormalities. In particular, no evidence of bowel obstruction. ACT 112: Negative or not required by law. CT angio chest PE protocol CLINICAL HISTORY: sob, chest pain, abd pain, covid hx TECHNIQUE: Multidetector row helical CT of the chest was performed. Coronal and sagittal reformations were obtained. Automated dose lowering techniques and/or adjustment according to patient size were utilized for this exam. Comparison: None available at the time of this dictation. FINDINGS: Lungs and pleura: Mild atelectasis is seen in the dependent portions of the lungs. Heart and pericardium: Heart size is normal. No pericardial effusion. Vessels: No evidence of pulmonary embolism. Mediastinum and shelby: Unremarkable. Chest wall and lower neck: Unremarkable. Abdomen: For findings below the diaphragm, please refer to CT of the abdomen dated the same. Bones: Unremarkable. IMPRESSION: No evidence of pulmonary embolism. ACT 112: Negative or not required by law. Hospital Course (1) Hematemesis: (2) COVID-19 virus infection: ASSESSMENT AND PLAN: � This is a 26-year-old male who presents with nausea, vomiting, one episode of hematemesis, alcoholism, COVID-19 and Lyme disease. Per admitting physician Dr. 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 No recurrence since admission Hemoglobin stable around 13 Protonix drip started GI consulted-EGD not recommended at this point Globin stable around 13 No recurrence of hematemesis or vomiting while admitted Protonix 40 mg twice a day for 1 month, then daily Follow-up with GI as an outpatient Alcohol use Patient reports drinking alcohol only on weekends No signs of alcohol withdrawal 2.� Lactic acidosis� most likely from alcoholism.� Resolved IV fluids 3.� Acute kidney injury.� Resolved with IV fluids 4.� Leukocytosis.� Lyme screen positive.� Elevated procalcitonin.� Follow-up Lyme Western blot, anaplasmosis DNA Given ceftriaxone IV plus doxycycline while admitted Awaiting results of Lyme Western blot, anaplasmosis DNA: Follow-up Discharged on doxycycline 100 mg p.o. twice daily x12 days to complete 14-day course 5.� COVID-19 positive.� Diagnosed June 19, 2021, patient had loss of taste and smell but no other symptoms Currently asymptomatic May be taken off isolation 6.� Deep venous thrombosis prophylaxis: SCDs in light of hematemesis DISPOSITION:� Discharge home today Follow-up with PCP in 1 week plan of care discussed with patient in detail and at length all questions answered He is understanding, agreeable, comfortable with the plan of care �
--- NOTE | 2021-07-03 15:34 | Electrocardiogram Report ---
Test Reason : Blood Pressure : / mmHG Vent. Rate : 121 BPM Atrial Rate : 121 BPM P-R Int : 152 ms QRS Dur : 080 ms QT Int : 324 ms P-R-T Axes : 050 008 050 degrees QTc Int : 460 ms Sinus tachycardia Otherwise normal ECG When compared with ECG of 30-OCT-2015 05:59, No significant change was found Confirmed by Neville Garvye ([id number]) on 07/03/2021 3:34:04 PM Referred By: REFERRED SELF Confirmed By:Neville Garvey
[2021-07-04 02:02] LABS: 18KDIGG Band NON-REACTIVE; 23KDIGG Band NON-REACTIVE; 23KDIGM Band NON-REACTIVE; 28KDIGG Band NON-REACTIVE; 30KDIGG Band NON-REACTIVE; 39KDIGG Band NON-REACTIVE; 39KDIGM Band NON-REACTIVE; 41KDIGG Band NON-REACTIVE; 41KDIGM Band NON-REACTIVE; 45KDIGG Band NON-REACTIVE; 58KDIGG Band NON-REACTIVE; 66KDIGG Band NON-REACTIVE; 93KDIGG Band NON-REACTIVE; Lyme Antibodies, WB IgG NEGATIVE (NEGATIVE); Lyme Antibodies, WB IgM NEGATIVE (NEGATIVE)
[2021-07-05 12:08] LABS: Ehrlichia chaff DNA Bld Negative (Negative)
[2021-07-06 02:30] LABS: Q Fever IgG, Phase I NEGATIVE; Q Fever Phase I IgM Antibody NEGATIVE; Q Fever Phase II IgG Antibody NEGATIVE; Q Fever Phase II IgM Antibody NEGATIVE; R. typhi IgG Ab NOT DETECTED; R. typhi IgM Ab NOT DETECTED; RMSF IgG Ab NOT DETECTED; RMSF IgM Ab NOT DETECTED
== END 2021-07-03 15:36 | disposition home or self-care (01) | DRG 377 ==
LOC: ED 15:32 → EDINP 20:42
DX: U07.1 COVID-19; K29.21 Alcoholic gastritis with bleeding; A69.20 Lyme disease, unspecified; F10.20 Alcohol dependence, uncomplicated; E87.2 Acidosis; K22.6 Gastro-esophageal laceration-hemorrhage syndrome; N17.9 Acute kidney failure, unspecified